=== PATIENT | female | born 1970 | race Two or more races ===

== ENCOUNTER 2021-11-26 22:32 | Emergency (ER) | payer OTHER ==
[~2021-11-26] VITALS: Ht 152.4 cm; Wt 56.2 kg
== END 2021-11-27 10:53 | disposition home or self-care (01) ==
LOC: ER 22:32
DX: K62.4 Stenosis of anus and rectum (principal); K59.00 Constipation, unspecified

== ENCOUNTER 2022-01-05 06:00 | Day surgery (SDC) | payer OTHER ==
[~2022-01-05 06:00] MED LIST: FLEXERIL PO; PRILOSEC OTC20 MG PO
[2022-01-05] MEDS ORDERED: PERCOCET 5-3251 EACH PO (11:30)
[2022-01-05] MEDS ORDERED: KETO10TA2 PO (11:31)
[2022-01-05] MEDS ORDERED: NEURONTIN300 MG PO (11:31)
== END 2022-01-05 18:30 | disposition home or self-care (01) ==
LOC: CIR.AMB 06:00
PROVIDERS: ATTEND Surgery
DX: K60.1 Chronic anal fissure (principal); K59.4 Anal spasm; K62.4 Stenosis of anus and rectum; K58.1 Irritable bowel syndrome with constipation; K64.1 Second degree hemorrhoids; K59.09 Other constipation; K62.5 Hemorrhage of anus and rectum; Z20.822 Contact with and (suspected) exposure to COVID-19

== ENCOUNTER 2022-01-18 15:28 | Emergency (ER) | payer OTHER ==
[~2022-01-18] VITALS: Ht 152.4 cm; Wt 54.4 kg
[~2022-01-18 15:28] MED LIST changes: +KETO10TA2 PO; +NEURONTIN300 MG PO; +PERCOCET 5-3251 EACH PO
== END 2022-01-18 23:21 | disposition home or self-care (01) ==
LOC: ER 15:28
DX: R10.2 Pelvic and perineal pain (principal); D25.9 Leiomyoma of uterus, unspecified; R10.9 Unspecified abdominal pain

== ENCOUNTER 2022-02-13 21:39 | Emergency (ER) | payer OTHER ==
[~2022-02-13] VITALS: Ht 152.4 cm; Wt 50.8 kg
[2022-02-14] MEDS ORDERED: CEPHALEXIN500 MG PO (01:24)
== END 2022-02-14 02:38 ==
LOC: ER 21:39
DX: N39.0 Urinary tract infection, site not specified (principal); R34 Anuria and oliguria; R33.9 Retention of urine, unspecified; K57.90 Diverticulosis of intestine, part unspecified, without perforation or abscess without bleeding

== ENCOUNTER 2023-07-16 10:09 | Emergency (ER) | payer OTHER ==
[~2023-07-16] VITALS: Ht 152.4 cm; Wt 54.4 kg
[~2023-07-16 10:09] MED LIST changes: +CEPHALEXIN500 MG PO
== END 2023-07-16 12:54 | disposition home or self-care (01) ==
LOC: ER 10:09
DX: K61.0 Anal abscess (principal)